=== PATIENT | female | born 1980 | race Caucasian/White ===

== ENCOUNTER 2023-03-12 13:05 | Emergency (ER) | payer OTHER ==
[~2023-03-12] VITALS: Ht 162.6 cm; Wt 83.9 kg
[2023-03-12 13:12] VITALS: BP 147/90
[2023-03-12] MEDS ORDERED: NACL 0.9% 1,000 ML IV ONE (13:30)
[2023-03-12] MEDS ORDERED: diphenhydrAMINE 50 MG/ML VIAL IVP ONE (13:30)
[2023-03-12] MEDS ORDERED: PROCHLORPERAZINE 10 MG/2 ML VIAL IVP ONE (13:30)
[2023-03-12] MEDS ORDERED: KETOROLAC 15 MG/ML VIAL IVP ONE (13:30)
[2023-03-12] MEDS ORDERED: ONDA-188 SL (14:16)
[2023-03-12] MEDS ORDERED: NAPR-54 PO (14:16)
--- NOTE | 2023-03-12 14:41 | NUR ---
Patient discharged with v/s stable. Written and verbal after care instructions given and explained. Patient verbalized understanding. Ambulatory with steady gait. All questions addressed prior to discharge. Advised to follow up with PMD.
== END 2023-03-12 14:41 | disposition home or self-care (01) ==
LOC: MED 13:05
DX: R51.9 Headache, unspecified (principal); R11.0 Nausea; Z88.5 Allergy status to narcotic agent; Z79.899 Other long term (current) drug therapy
CPT/HCPCS: 96361; 96374; 96375; 99284; J0780; J1200; J1885; J7030